=== PATIENT | female | born 1985 | race Caucasian/White ===

== ENCOUNTER 2017-05-31 17:18 | Emergency (ER) | payer OTHER ==
[~2017-05-31] VITALS: Ht 162.6 cm; Wt 115.9 kg
[~2017-05-31 17:18] MED LIST: AMITIZA24 MICROGR PO; CAPITAL WITH C473 ML PO; CEPHALEXIN250 MG/5 M PO; CLONAZEPAM0.5 MG PO; COLACE100 MG PO; Colace PO; Feosol PO; HYDROCODON-ACE1 EAC7 PO; KLONOPIN0.5 M1 PO; LUNESTA1 MG PO; METAMUCIL0.52 GM PO; Motrin PO; NATALCARE RX1 TABLET PO; OXCARBAZEPINE300 MG PO; PERCOCET 5/31 TABLET PO; PRAZOSIN HCL1 MG PO; PRISTIQ100 MG PO; Percocet 5/325,Endoc PO; RANITIDINE HCL150 MG PO; SEROQUEL100 MG PO; TRAZODONE HCL50 MG PO; TRILEPTAL600 MG PO; ZOFRAN ODT8 MG PO; ZOFRAN4 MG PO
[2017-05-31 18:15] VITALS: BP 117/77
== END 2017-05-31 18:16 | disposition home or self-care (01) ==
LOC: EME 17:18
DX: N64.4 Mastodynia (principal)
CPT/HCPCS: 99281; 99283

== ENCOUNTER 2017-06-18 12:34 | Emergency (ER) | payer OTHER ==
[~2017-06-18] VITALS: Ht 162.6 cm; Wt 115.3 kg
[2017-06-18 14:24] LABS: HEMATOCRIT 39.3 % (36.0-46.0); MCH 27.6 PG (29.0-34.0); MCHC 32.6 G/DL (30.0-36.0); MCV 84.7 FL (83-99); PLATELET COUNT 343 K/uL (156-360); RBC DIS.WIDTH-CV 12.7 % (11.8-14.6); RBC DIS.WIDTH-SD 39.2 % (39-53); RED BLOOD COUNT 4.64 M/uL (3.80-5.20); WHITE BLOOD COUNT 9.9 K/uL (4.1-10.2)
[2017-06-18 14:33] LABS: CHLORIDE 109 mEq/L (99-109); POTASSIUM 3.7 mEq/L (3.7-5.4); SODIUM 140 mEq/L (136-147)
[2017-06-18 14:34] LABS: GLUCOSE 112 mg/dL (70-99)
[2017-06-18 14:36] LABS: ANION GAP 9 MEQ/L (2-14)
[2017-06-18 14:38] LABS: GFR ESTIMATE (CALCULATED) > 59 mL/min/; SERUM ETHYL ALCOHOL < 10 mg/dL
[2017-06-18 14:39] LABS: UREA NITROGEN (BUN) 13 mg/dL (9-23)
[2017-06-18 15:51] LABS: AMPHETAMINE NEGATIVE (500 ng/mL); BARBITURATES NEGATIVE (200 ng/mL); BENZODIAZEPINES PRESUMPTIVE POSITIVE (150 ng/mL); COCAINE NEGATIVE (150 ng/mL); INTERNAL CONTROLS VALID? YES; METHADONE NEGATIVE (200 ng/mL); METHAMPHETAMINE NEGATIVE (500 ng/mL); OPIATES (MORPHINE) NEGATIVE (100 ng/mL); OXYCODONE NEGATIVE (100 ng/mL); PHENCYCLIDINE NEGATIVE (25 ng/mL); PROPOXYPHENE NEGATIVE (300 ng/mL); THC CANNABINOIDS NEGATIVE (50 ng/mL); TRICYCLIC ANTIDEPRESSANTS NEGATIVE (300 ng/mL)
[2017-06-18 15:52] LABS: ADD MEDTOX COMMENT Y
[2017-06-18 16:24] LABS: BENZODIAZEPINES, URINE SCREEN POSITIVE (200 ng/mL)
[2017-06-18] MEDS ORDERED: TRAZODONE HCL100 MG PO (17:37)
[2017-06-18] MEDS ORDERED: PRAZOSIN HCL1 MG PO (17:37)
[2017-06-18] MEDS ORDERED: VRAYLAR6 MG PO (17:38)
[2017-06-18 18:37] VITALS: BP 119/86
== END 2017-06-18 18:40 | disposition home or self-care (01) ==
LOC: EME 12:34
DX: F32.9 Major depressive disorder, single episode, unspecified (principal); F41.1 Generalized anxiety disorder; F43.10 Post-traumatic stress disorder, unspecified
CPT/HCPCS: 80048; 84999; 85027; 90839; 99281; 99284; G0480